=== PATIENT | female | born 2000 | race Caucasian/White ===

== ENCOUNTER 2020-11-17 09:52 | Emergency (ER) | payer OTHER ==
[2020-11-17 09:59] VITALS: BP 129/73; PULSE 63; TEMP 97.9; BMI 15.7
[2020-11-17] MEDS ORDERED: ONDANSETRON 4 MG/2 ML VIAL IVPUSH ONE (10:29)
[2020-11-17] MEDS ORDERED: SODIUM CHLORIDE 0.9% 500 ML INFUS.BAG IV ONE ×2 (10:29→11:59)
[2020-11-17] MEDS ORDERED: ONDANSETRON 4 MG/2 ML VIAL ONE (10:49)
[2020-11-17 11:37] LABS: BASO % 0.4 % (0-2.0); HEMATOCRIT 37.5 % (32.4-45.2); LYMPH % 4.7 % (8-40); MCH 30.1 pg (25.7-33.7); MCHC 34.6 g/dl (32.0-36.0); MEAN CELL VOLUME 86.9 fl (80-96); MONO % 2.8 % (3.8-10.2); NEUT % 92.1 % (42.8-82.8); PLATELET COUNT 326 10^3/uL (134-434); RBC 4.31 M/mm3 (3.60-5.2); RDW 12.4 % (11.6-15.6); WHITE BLOOD COUNT 17.1 K/mm3 (4.0-10.0)
[2020-11-17 11:55] LABS: HCG,QUALITATIVE URINE Negative
[2020-11-17 12:04] LABS: CALCIUM 9.3 mg/dL (8.5-10.1)
[2020-11-17 12:05] LABS: ALBUMIN 4.4 g/dl (3.4-5.0)
[2020-11-17 12:08] LABS: CREATININE 0.8 mg/dL (0.55-1.3)
[2020-11-17 12:09] LABS: EPI CELLS >36 /uL (0-25.1); HYALINE CASTS 9 /uL (0-3.1); PH,URINE >= 9.0 (5.0-8.0); URINE APPEARANCE CLEAR; URINE BACTERIA 30 /uL (0-1359); URINE BILIRUBIN NEGATIVE (NEGATIVE); URINE COLOR YELLOW; URINE GLUCOSE (UA) NEGATIVE (NEGATIVE); URINE KETONE 3+ (NEGATIVE); URINE LEUK ESTERASE NEGATIVE (NEGATIVE); URINE NITRITE NEGATIVE (NEGATIVE); URINE PROTEIN TRACE (NEGATIVE); URINE RBC 6 /uL (0-23.9); URINE UROBILINOGEN 0.2 mg/dL (0.2-1.0); URINE WBC 10 /uL (0-25.8)
[2020-11-17 12:10] LABS: BILIRUBIN,TOTAL 0.4 mg/dL (0.2-1)
[2020-11-17 12:38] LABS: ANISOCYTOSIS 0; HELMET CELLS 0; HOWELL-JOLLY BODIES 0; MACROCYTOSIS 0; OVALOCYTE 0; PLATELET ESTIMATE NORMAL; ROULEAU 0; SICKELED CELLS 0; TARGET CELLS 0; TEAR DROP CELLS 0; TOXIC GRANULATION 0
== END 2020-11-17 13:00 | disposition home or self-care (01) ==
LOC: JER 09:52
PROC: 3E033NZ Introduction of Analgesics, Hypnotics, Sedatives into Peripheral Vein, Percutaneous Approach (ICD-10-PCS; principal; 2020-11-17)
DX: R11.2 Nausea with vomiting, unspecified (principal)
CPT/HCPCS: 36415; 80053; 81003; 84703; 85025; 87086; 99284-25